=== PATIENT | female | born 1945 | race Caucasian/White ===

== ENCOUNTER 2017-09-09 13:30 | Outpatient (CLI) | payer OTHER, MEDICARE | END 2017-09-09 19:28 | disposition home or self-care (01) | LOC: SMA 13:30 | PROVIDERS: ATTEND Obstetrics & Gynecology Gynecology | DX: Z12.31 Encounter for screening mammogram for malignant neoplasm of breast (principal) | CPT/HCPCS: G0202 ==

== ENCOUNTER 2018-09-17 09:50 | Outpatient (CLI) | payer OTHER, MEDICARE | END 2018-09-17 20:51 | disposition home or self-care (01) | LOC: SMA 09:50 | PROVIDERS: ATTEND Obstetrics & Gynecology Gynecology | DX: Z12.31 Encounter for screening mammogram for malignant neoplasm of breast (principal) | CPT/HCPCS: 77067 ==

== ENCOUNTER 2020-04-19 23:28 | Inpatient (IN) | payer OTHER, MEDICARE, SELFPAY ==
[~2020-04-19] VITALS: Ht 162.6 cm; Wt 67.6 kg
[2020-04-19 23:34] VITALS: BP_SYST 114
[2020-04-20 01:03] LABS: BASOPHILS % (AUTO) 0.5 % (0.0-2.0); EOSINOPHILS # (AUTO) 0.1 K/uL (0.0-0.4); EOSINOPHILS % (AUTO) 0.7 % (0.0-4.0); HEMOGLOBIN 12.3 g/dL (12.0-16.0); LYMPHOCYTES # (AUTO) 2.1 K/uL (1.0-5.5); LYMPHOCYTES % (AUTO) 22.1 % (20.5-51.5); MEAN CORPUSCULAR HEMOGLOBIN 31 pg (27-31); MEAN CORPUSCULAR HGB CONC 33 % (32-36); MEAN CORPUSCULAR VOLUME 93 fL (79.0-98.0); MONOCYTES # (AUTO) 0.7 K/uL (0.0-1.0); MONOCYTES % (AUTO) 7.7 % (1.7-9.3); NEUTROPHILS # (AUTO) 6.7 K/uL (1.8-7.7); PLATELET COUNT (AUTO) 287 K/uL (130-430); RED BLOOD CELL COUNT(AUTO) 3.97 MIL/uL (4.2-6.2); RED CELL DISTRIBUTION WIDTH 13.5 % (9.0-15.0); WHITE BLOOD COUNT (AUTO) 9.7 K/uL (4.8-10.8)
[2020-04-20 01:06] LABS: ANION GAP 11 (5-15); CALCIUM 8.9 mg/dL (8.4-11.0); CHLORIDE 102 mmol/L (98-107); CREATININE 1.05 mg/dL (0.55-1.30); GLUCOSE 99 mg/dL (70-99); POTASSIUM 3.5 mmol/L (3.5-5.1); SODIUM SERUM 141 mmol/L (136-145); UREA NITROGEN, BLOOD 13 mg/dL (8-21)
[2020-04-20] MEDS ORDERED: HYDR200T80 PO (01:19)
[2020-04-20] MEDS ORDERED: LEVO88TA5 PO (01:22)
[2020-04-20 01:23] LABS: ALANINE AMINOTRANSFERASE 28 U/L (12-78); ALBUMIN 3.4 g/dL (3.4-4.8); ASPARTATE AMINOTRANSFERASE 25 U/L (10-37); TOTAL BILIRUBIN 0.4 mg/dL (0.0-1.0)
[2020-04-20] MEDS ORDERED: PRED10TA PO (01:24)
[2020-04-20] MEDS ORDERED: DULO20CA PO (01:25)
[2020-04-20] MEDS ORDERED: NACL 0.9% 1,000 ML IV ONE (01:30)
[2020-04-20] MEDS ORDERED: cefTRIAXone 1 GM IVPB PREMIX 50 ML IV ONE (01:30)
[2020-04-20 01:56] LABS: BILIRUBIN,URINE NEGATIVE (NEGATIVE); BLOOD, URINE NEGATIVE (NEGATIVE); CLARITY/URINE CLEAR (CLEAR); COLOR,URINE YELLOW (YELLOW); GLUCOSE,URINE NEGATIVE (NEGATIVE); KETONES,URINE NEGATIVE (NEGATIVE); LEUKOCYTE ESTERASE ,URINE NEGATIVE (NEGATIVE); NITRITE, URINE NEGATIVE (NEGATIVE); PROTEIN URINE NEGATIVE (NEGATIVE); UROBILINOGEN,URINE 0.2 (0.2-1.0)
[2020-04-20 02:29] VITALS: BP_SYST 104
[2020-04-20 02:36] VITALS: BP_SYST 123
[2020-04-20] MEDS: NACL 0.9% 1,000 ML IV SCH ×2 (03:30)
[2020-04-20 08:00] VITALS: BP_SYST 118
[2020-04-20] MEDS: LEVOTHYROXINE SODIUM 0.088 MG TABLET PO SCH (09:22)
[2020-04-20] MEDS: DULoxetine HCL 20 MG CAPSULE.DR PO SCH (09:22)
[2020-04-20] MEDS: PREDNISONE 10 MG TABLET PO SCH (09:22)
[2020-04-20] MEDS: HYDROXYCHLOROQUINE SULFATE 200 MG TABLET PO SCH ×2 (09:22→21:30)
[2020-04-20 12:00] VITALS: BP_SYST 130
[2020-04-20] MEDS ORDERED: DOCUSATE SODIUM 100 MG CAPSULE PO PRN (12:15)
[2020-04-20] MEDS ORDERED: LORazepam 2 MG/ML VIAL IVP PRN (12:15)
[2020-04-20] MEDS ORDERED: MUPIROCIN 2% TOPICAL OINTMENT 22 GM NS PRN (12:15)
[2020-04-20] MEDS ORDERED: MAGNESIUM SULFATE 50 ML IV PRN (12:15)
[2020-04-20] MEDS ORDERED: ZOLPIDEM TARTRATE 5 MG TABLET PO PRN (12:15)
[2020-04-20] MEDS ORDERED: ACETAMINOPHEN 325 MG TABLET PO PRN (12:15)
[2020-04-20] MEDS ORDERED: ONDANSETRON HCL 4 MG/2 ML VIAL IVP PRN (12:15)
[2020-04-20] MEDS ORDERED: POTASSIUM CHLORIDE 20 MEQ TAB.PRT.SR PO PRN (12:15)
[2020-04-20 16:00] VITALS: BP_SYST 128
[2020-04-20 20:00] VITALS: BP_SYST 123
[2020-04-20] MEDS: HEPARIN SODIUM,PORCINE 5000 UNITS/ML VIAL SUBCUT SCH (21:30)
[2020-04-21] VITALS: BP_SYST 134
[2020-04-21] MEDS: NACL 0.9% 1,000 ML IV SCH (06:06)
[2020-04-21 07:03] LABS: BASOPHILS # (AUTO) 0.1 K/uL (0.0-0.2); BASOPHILS % (AUTO) 0.6 % (0.0-2.0); EOSINOPHILS # (AUTO) 0.1 K/uL (0.0-0.4); EOSINOPHILS % (AUTO) 1.2 % (0.0-4.0); HEMATOCRIT 35.4 % (36-48); HEMOGLOBIN 11.6 g/dL (12.0-16.0); LYMPHOCYTES # (AUTO) 2.1 K/uL (1.0-5.5); LYMPHOCYTES % (AUTO) 25.6 % (20.5-51.5); MEAN CORPUSCULAR HEMOGLOBIN 31 pg (27-31); MEAN CORPUSCULAR HGB CONC 33 % (32-36); MEAN CORPUSCULAR VOLUME 93 fL (79.0-98.0); MONOCYTES # (AUTO) 0.6 K/uL (0.0-1.0); MONOCYTES % (AUTO) 7.7 % (1.7-9.3); NEUTROPHILS # (AUTO) 5.3 K/uL (1.8-7.7); NEUTROPHILS % (AUTO) 64.9 % (40.0-70.0); PLATELET COUNT (AUTO) 239 K/uL (130-430); RED CELL DISTRIBUTION WIDTH 13.5 % (9.0-15.0); WHITE BLOOD COUNT (AUTO) 8.1 K/uL (4.8-10.8)
[2020-04-21 07:27] LABS: ANION GAP 5 (5-15); CHLORIDE 108 mmol/L (98-107); CREATININE 0.95 mg/dL (0.55-1.30); GLUCOSE 80 mg/dL (70-99); POTASSIUM 3.5 mmol/L (3.5-5.1); SODIUM SERUM 141 mmol/L (136-145); UREA NITROGEN, BLOOD 10 mg/dL (8-21)
[2020-04-21] MEDS: HYDROXYCHLOROQUINE SULFATE 200 MG TABLET PO SCH (08:48)
[2020-04-21] MEDS: DULoxetine HCL 20 MG CAPSULE.DR PO SCH (08:49)
[2020-04-21] MEDS: LEVOTHYROXINE SODIUM 0.088 MG TABLET PO SCH (08:49)
[2020-04-21] MEDS: PREDNISONE 10 MG TABLET PO SCH (08:49)
[2020-04-21] MEDS: HEPARIN SODIUM,PORCINE 5000 UNITS/ML VIAL SUBCUT SCH (08:58)
[2020-04-21 10:17] VITALS: BP_SYST 135
[2020-04-21 10:20] VITALS: BP_SYST 138
[2020-04-21 12:38] VITALS: BP_SYST 148
[2020-04-21 12:44] VITALS: BP_SYST 144
== END 2020-04-21 13:29 | disposition home or self-care (01) | DRG 74 ==
LOC: SED 23:28 → EEVIPCON 04-20 01:17 → STU 04-20 01:17
PROVIDERS: ADMIT General Practice; ATTEND General Practice
DX: G90.8 Other disorders of autonomic nervous system (principal); M06.9 Rheumatoid arthritis, unspecified; F32.9 Major depressive disorder, single episode, unspecified; E03.9 Hypothyroidism, unspecified; Z03.818 Encounter for observation for suspected exposure to other biological agents ruled out; Z88.5 Allergy status to narcotic agent; Z79.899 Other long term (current) drug therapy
CPT/HCPCS: 36415; 70450-TC; 71045; 80048; 80053; 81003; 83036; 83605; 83735-TC; 84443-TC; 84484; 85025; 87040-TC; 93005; 93880; 96365; 99285; G0378; J0696; J1644; J7030; J7512; U0003-CS